=== PATIENT | male | born 1990 | race Two or more races ===

== ENCOUNTER 2019-11-16 15:05 | Emergency (ER) | payer OTHER ==
[2019-11-16 15:28] VITALS: BP 104/50; PULSE 54; TEMP 97.6; BMI 18.6
--- NOTE | 2019-11-16 16:10 | PDOC ---
History of Present Illness - General Chief Complaint: Substance Abuse Stated Complaint: "PASSED OUT" Time Seen by Provider: 11/16/19 16:10 History Source: Patient Exam Limitations: No Limitations - History of Present Illness Initial Comments: 11/16/19 16:29 29yM w PMHx ankle fx s/p repair yesterday (Dr Britton) presenting w syncope. This afternoon, endorsed taking 2 oxycodone and smoking marijuana, subsequently felt lightheaded and legs weak outdoors, sat on bench, then lost consciousness hitting head lightly on ground w few seconds extremity tremors. Currently complaining of persistent L ankle pain. Denies headache, n/v, chest/ABD pain. Pt able to ambulate w crutches after incident Past History - Medical History Allergies/Adverse Reactions: Allergies Allergy/AdvReac Type Severity Reaction Status Date / Time No Known Allergies Allergy Verified 11/16/19 15:25 COPD: No - Psycho-Social/Smoking History Smoking History: Never smoked Have you smoked in the past 12 months: No Information on smoking cessation initiated: No - Substance Abuse Hx (Audit-C & DAST Scrn) How often the patient has a drink containing alcohol: Never Score: In Men: 4 or > Positive; In Women: 3 or > Positive: 0 Screen Result (Pos requires Nsg. Audit-10AR): Negative In the last yr the pt used illegal drug/Rx for NonMed reason: Yes Score: Yes response is considered Positive: 1 Screen Result (Positive result requires Nsg. DAST-10): Positive Review of Systems - Review of Systems Constitutional: No: Chills, Fever HEENTM: No: Eye Pain, Nose Congestion Respiratory: No: Cough, Shortness of Breath Cardiac (ROS): No: Chest Pain, Palpitations ABD/GI: No: Constipated, Diarrhea, Nausea, Vomiting : No: Burning, Dysuria Musculoskeletal: Yes: Joint Pain (ankle). No: Back Pain Integumentary: No: Bruising, Flushing Neurological: No: Headache, Seizure Psychiatric: No: Anxiety, Depression Endocrine: No: Intolerance to Cold, Intolerance to Heat Hematologic/Lymphatic: No: Anemia, Blood Clots *Physical Exam - Vital Signs Last Vital Signs Temp Pulse Resp BP Pulse Ox 97.6 F 54 L 18 104/50 L 100 11/16/19 15:26 11/16/19 15:26 11/16/19 15:26 11/16/19 15:26 11/16/19 15:26 - Physical Exam General Appearance: Yes: Nourished, Appropriately Dressed, Moderate Distress HEENT: positive: EOMI, MARTHA, Normal Voice, Hearing Grossly Normal. negative: Scleral Icterus (R), Scleral Icterus (L) Neck: positive: Supple. negative: Tender, Rigid, Decreased range of motion (full ROM) Respiratory/Chest: positive: Lungs Clear, Normal Breath Sounds. negative: Chest Tender, Respiratory Distress Cardiovascular: positive: Regular Rhythm, Regular Rate, S1, S2. negative: Edema, Murmur Gastrointestinal/Abdominal: positive: Normal Bowel Sounds, Flat, Soft. negative: Tender, Organomegaly Extremity: positive: Other (LLE in cast, able to wiggle toes) Integumentary: positive: Normal Color, Warm Neurologic: positive: Fully Oriented, Alert, Normal Mood/Affect, Normal Response, Motor Strength 5/5, Responsive. negative: Numbness Medical Decision Making - Medical Decision Making 11/16/19 16:48 29yM w PMHx ankle fx s/p repair yesterday (Dr Britton) presenting w syncope. Likely vasovagal vs orthostatic vs opioid/THC induced. Pt was not intoxicated on initial eval in ED. Pt eloped before evaluation by attending. Discharge - Discharge Information Problems reviewed: Yes Clinical Impression/Diagnosis: Eloped from emergency department Syncope Qualifiers: Syncope type: unspecified Qualified Code(s): R55 - Syncope and collapse Condition: Stable Disposition: ELOPED - Follow up/Referral - Patient Discharge Instructions - Post Discharge Activity
--- NOTE | 2019-11-16 16:19 | PDOC ---
Attending Attestation - Resident Resident Name: Dav Kent - ED Attending Attestation I have performed the following: I have examined & evaluated the patient, The case was reviewed & discussed with the resident, I agree w/resident's findings & plan - HPI HPI: 11/16/19 17:08 29 y/o in summary presents after "passing out," after taking oxycodone and marijuana - Physicial Exam PE: 11/16/19 16:19 not done, pt eloped 11/16/19 17:08 - Medical Decision Making 11/16/19 16:19 Vital Signs Temp Pulse Resp BP Pulse Ox 97.6 F 54 L 18 104/50 L 100 11/16/19 15:26 11/16/19 15:26 11/16/19 15:26 11/16/19 15:26 11/16/19 15:26 11/16/19 17:10 pt eloped from department prior to resident or attg evaluation. pt was in cast/crutches and left the department prior to full evaluation. searched in all bathrooms and areas of the ED, nowhere to be found. ekg, ordered not done. no IV in place. Discharge - Discharge Information Problems reviewed: No Clinical Impression/Diagnosis: Eloped from emergency department - Follow up/Referral - Patient Discharge Instructions - Post Discharge Activity
== END 2019-11-16 17:35 | disposition left against medical advice (07) ==
LOC: JER 15:05
DX: R55 Syncope and collapse (principal)
CPT/HCPCS: 99283-25